=== PATIENT | female | born 1975 | race Caucasian/White ===

== ENCOUNTER → 2017-10-10 | Outpatient (CLI) | payer OTHER ==
[~2017-10-10] VITALS: Ht 167.6 cm; Wt 90.7 kg
[~2017-10-10] MED LIST: ABILIFY15 MG PO; AMBIEN10 MG PO; ENDOCET 10-3251 EACH PO; KADIAN30 MG PO; PROTONIX40 MG PO; WELLBUTRIN XL300 MG PO
== END | disposition home or self-care (01) ==
LOC: AMB 12:38
PROC: 0DJ08ZZ Inspection of Upper Intestinal Tract, Via Natural or Artificial Opening Endoscopic (ICD-10-PCS; principal; 2017-10-10)
DX: K21.0 Gastro-esophageal reflux disease with esophagitis (principal); K44.9 Diaphragmatic hernia without obstruction or gangrene; Z98.84 Bariatric surgery status; F31.9 Bipolar disorder, unspecified; E78.5 Hyperlipidemia, unspecified; M51.26 Other intervertebral disc displacement, lumbar region; Z80.0 Family history of malignant neoplasm of digestive organs; Z87.891 Personal history of nicotine dependence; Z82.49 Family history of ischemic heart disease and other diseases of the circulatory system; Z83.3 Family history of diabetes mellitus; Z88.5 Allergy status to narcotic agent
CPT/HCPCS: J0330; J3010

== ENCOUNTER 2017-10-29 09:03 | Emergency (ER) | payer OTHER ==
[~2017-10-29] VITALS: Ht 167.6 cm; Wt 92.6 kg
[2017-10-29 10:23] LABS: HEMATOCRIT 32.4 % (36.0-46.0); MCH 25.9 PG (29.0-34.0); MCHC 31.2 G/DL (30.0-36.0); MCV 83.1 FL (83-99); MEAN PLAT.VOLUME 9.9 uM^3 (9.5-12.4); PLATELET COUNT 340 K/uL (156-360); RBC DIS.WIDTH-CV 13.3 % (11.8-14.6); RBC DIS.WIDTH-SD 40.2 % (39-53); WHITE BLOOD COUNT 7.6 K/uL (4.1-10.2)
[2017-10-29 10:39] LABS: CHLORIDE 105 mEq/L (99-109); POTASSIUM 4.1 mEq/L (3.7-5.4); SODIUM 139 mEq/L (136-147)
[2017-10-29 10:41] LABS: GLUCOSE 113 mg/dL (70-99)
[2017-10-29 10:42] LABS: ANION GAP 11 MEQ/L (2-14)
[2017-10-29 10:43] LABS: TOTAL BILIRUBIN 0.2 mg/dL (0.0-1.0)
[2017-10-29 10:45] LABS: ALKALINE PHOSPHATASE 57 IU/L (3-129); GFR ESTIMATE (CALCULATED) > 59 mL/min/
[2017-10-29 10:46] LABS: UREA NITROGEN (BUN) 12 mg/dL (9-23)
[2017-10-29 10:48] LABS: LIPASE 11 U/L (1.0-51.0)
[2017-10-29 10:56] LABS: QUANTITATIVE HCG < 4.0 MIU/ML
[2017-10-29 11:09] LABS: ADD MIUA? YES; BILIRUBIN NEGATIVE; BLOOD SMALL; COLOR YELLOW ((YELLOW)); GLUCOSE (STRIP) NEGATIVE; KETONES NEGATIVE; LEUKOCYTES NEGATIVE; NITRITE NEGATIVE; PROTEIN (STRIP) NEGATIVE; SPECIFIC GRAVITY 1.018 (1.000-1.030); UROBILINOGEN 0.2 MG/DL (0.2-1.0)
[2017-10-29 11:15] LABS: BACTERIA NONE SEEN /HPF; EPITHELIAL CELLS 1+ /HPF; MUCUS NONE SEEN /LPF; UCUL ADDED? NO; WHITE BLOOD CELLS 0-5 /HPF (0-5)
[2017-10-29] MEDS ORDERED: KADIAN30 MG PO (13:40)
[2017-10-29] MEDS ORDERED: LIDOCAINE HCL35 GM TP (13:40)
[2017-10-29] MEDS ORDERED: [UNRECOGNIZED DRUG - OTHER] TP (13:43)
[2017-10-29 19:03] VITALS: BP 136/78
== END 2017-10-29 19:12 | disposition short-term general hospital (02) ==
LOC: EME 09:03
DX: K95.09 Other complications of gastric band procedure (principal); J18.9 Pneumonia, unspecified organism; R10.13 Epigastric pain; F32.9 Major depressive disorder, single episode, unspecified; Z87.891 Personal history of nicotine dependence; Z88.5 Allergy status to narcotic agent
CPT/HCPCS: 74177; 80053; 81003; 83690; 84702; 85027; 87040; 99281; 99285; J0295; J2270; J7030; J7050

== ENCOUNTER 2017-11-18 18:45 | Inpatient (IN) | payer OTHER ==
[~2017-11-18] VITALS: Ht 170.2 cm; Wt 89.1 kg
[~2017-11-18 18:45] MED LIST changes: +LIDOCAINE HCL35 GM TP; +[UNRECOGNIZED DRUG - OTHER] TP
[2017-11-18 19:33] LABS: CHLORIDE 87 mEq/L (99-109); POTASSIUM 3.3 mEq/L (3.7-5.4); SODIUM 133 mEq/L (136-147)
[2017-11-18 19:35] LABS: GLUCOSE 104 mg/dL (70-99)
[2017-11-18 19:37] LABS: HEMATOCRIT 28.2 % (36.0-46.0); HEMOGLOBIN 8.8 G/DL (11.9-15.5); MCHC 31.2 G/DL (30.0-36.0); NRBC (%) 0.3 /100 WBC (0-0); RBC DIS.WIDTH-CV 15.1 % (11.8-14.6); RBC DIS.WIDTH-SD 41.6 % (39-53); RED BLOOD COUNT 3.66 M/uL (3.80-5.20); WHITE BLOOD COUNT 12.3 K/uL (4.1-10.2)
[2017-11-18 19:39] LABS: CREATININE 0.7 mg/dL (0.6-1.3); GFR ESTIMATE (CALCULATED) > 59 mL/min/
[2017-11-18 19:40] LABS: UREA NITROGEN (BUN) 10 mg/dL (9-23)
[2017-11-18 19:46] LABS: TROP-I INTERPRETATION NEGATIVE; TROPONIN-I < 0.01 ng/mL (0.0-0.30)
[2017-11-18 20:22] LABS: PLAT.SUFFICIENCY INCREASED
[2017-11-18 20:23] LABS: PLATELET COUNT 1190 K/uL (156-360)
[2017-11-19] VITALS (8 sets, daily range): BP systolic 112–151; BP diastolic 56–84
[2017-11-19 06:06] LABS: BASOPHIL (%) 0.2 % (0-1); EOSINOPHIL (%) 0.3 % (0-5); HEMATOCRIT 24.6 % (36.0-46.0); HEMOGLOBIN 7.8 G/DL (11.9-15.5); IMMATURE GRANULOCYTE (%) 0.4 % (0.0-0.7); LYMPHOCYTE (%) 18.4 % (15-42); LYMPHOCYTE COUNT 1.7 K/uL (1.0-2.8); MCH 24.4 PG (29.0-34.0); MCHC 31.7 G/DL (30.0-36.0); MCV 76.9 FL (83-99); MONOCYTE (%) 7.9 % (3-12); MONOCYTE COUNT 0.7 K/uL (0-0.8); NEUTROPHIL (%) 72.8 % (45-76); NEUTROPHIL COUNT 6.6 K/uL (1.8-6.4); NRBC (%) 0.2 /100 WBC (0-0); PLATELET COUNT 893 K/uL (156-360); RBC DIS.WIDTH-CV 15.4 % (11.8-14.6); RBC DIS.WIDTH-SD 42.1 % (39-53)
[2017-11-19 06:09] LABS: INTER. NORMALIZED RATIO 1.4
[2017-11-19 06:12] LABS: PTT 30.9 SEC (25-37)
[2017-11-19 06:28] LABS: ALBUMIN 2.3 G/DL (3.2-4.8); ALKALINE PHOSPHATASE 148 IU/L (3-129); ALT (GPT) 20 IU/L (3-49); AST (GOT) 27 IU/L (2-34); CHLORIDE 91 MEQ/L (99-109); CREATININE 0.4 MG/DL (0.6-1.3); GFR ESTIMATE (CALCULATED) > 59 mL/min/; GLUCOSE 108 mg/dL (70-99); MAGNESIUM 2.1 mg/dl (1.3-2.7); POTASSIUM 3.5 MEQ/L (3.7-5.4); SODIUM 135 MEQ/L (136-147); TOTAL BILIRUBIN 0.7 MG/DL (0.0-1.0); TOTAL PROTEIN 6.1 G/DL (6.4-8.3); UREA NITROGEN (BUN) 8 mg/dL (9-23)
[2017-11-19 08:55] LABS: FERRITIN 128 NG/ML (10-291)
[2017-11-19 08:58] LABS: TRANSFERRIN (TIBC) 145.9 mg/dL (215-380)
[2017-11-19 08:59] LABS: IRON < 10.0 MCG/DL (35-150)
[2017-11-19 10:10] LABS: FOLIC ACID (FOLATE) 9.3 NG/ML (5.0-22.0)
[2017-11-19 15:01] LABS: TYPE OF FLUID PLEURAL
[2017-11-19 16:36] LABS: APPEARANCE TURBID-YELLOW; BODY FLUID EOSINOPHILS 0 % (0-25); BODY FLUID RBC'S 400000 /MM^3 (0-100); BODY FLUID WBC'S 356000 /MM^3 (0-500); COMMENT MANY INTRA AND EXTRA CELLULAR BACTERIA SEEN; MONONUCLEAR WBC'S 2 %; POLYNUCLEAR WBC'S 98 % (0-25)
[2017-11-19 16:49] LABS: BODY FLUID PROTEIN 3.4 G/DL
[2017-11-19 17:09] LABS: BODY FLUID GLUCOSE < 10 MG/DL
[2017-11-19 17:10] LABS: BODY FLUID LDH > 12000 IU/L
[2017-11-20 03:42] VITALS: BP 107/55
[2017-11-20 07:15] VITALS: BP 111/56
[2017-11-20 07:27] LABS: HEMATOCRIT 25.9 % (36.0-46.0); MCH 23.9 PG (29.0-34.0); MCHC 30.9 G/DL (30.0-36.0); MCV 77.3 FL (83-99); PLATELET COUNT 896 K/uL (156-360); RBC DIS.WIDTH-CV 15.2 % (11.8-14.6); RBC DIS.WIDTH-SD 41.9 % (39-53); RED BLOOD COUNT 3.35 M/uL (3.80-5.20)
[2017-11-20 08:20] LABS: CHLORIDE 93 MEQ/L (99-109); CREATININE 0.4 MG/DL (0.6-1.3); GFR ESTIMATE (CALCULATED) > 59 mL/min/; GLUCOSE 119 mg/dL (70-99); SODIUM 135 MEQ/L (136-147); UREA NITROGEN (BUN) 13 mg/dL (9-23)
[2017-11-20 09:53] LABS: POTASSIUM 3.7 MEQ/L (3.7-5.4)
[2017-11-20 11:19] VITALS: BP 117/56
[2017-11-20 13:17] LABS: STOOL OCCULT BLD 1ST SPECIMEN NEGATIVE
[2017-11-20 13:18] LABS: STOOL OCCULT BLD 1ST SPECIMEN NEGATIVE
[2017-11-20 18:48] VITALS: BP 122/60
[2017-11-20 23:57] VITALS: BP 116/57
[2017-11-21 03:48] VITALS: BP 141/78
[2017-11-21 06:58] LABS: RETICULOCYTE COUNT 0.9 % (0.5-1.8)
[2017-11-21 07:47] VITALS: BP 121/68
[2017-11-21 08:22] LABS: ALBUMIN 2.3 G/DL (3.2-4.8); ALKALINE PHOSPHATASE 118 IU/L (3-129); ALT (GPT) 23 IU/L (3-49); AST (GOT) 29 IU/L (2-34); DIRECT BILIRUBIN 0.2 mg/dL (0.0-0.3); FERRITIN 103 NG/ML (10-291); LACTATE DEHYDROGENASE 113 IU/L (20-246); TOTAL PROTEIN 5.8 G/DL (6.4-8.3)
[2017-11-21 08:27] LABS: TOTAL BILIRUBIN 0.4 MG/DL (0.0-1.0)
[2017-11-21 11:49] VITALS: BP 132/64
[2017-11-21 15:22] LABS: BASOPHIL (%) 0.3 % (0-1); EOSINOPHIL (%) 5.6 % (0-5); EOSINOPHIL COUNT 0.4 K/uL (0-0.3); HEMATOCRIT 24.4 % (36.0-46.0); HEMOGLOBIN 7.3 G/DL (11.9-15.5); IMMATURE GRANULOCYTE (%) 0.3 % (0.0-0.7); LYMPHOCYTE (%) 33.4 % (15-42); LYMPHOCYTE COUNT 2.4 K/uL (1.0-2.8); MCH 23.8 PG (29.0-34.0); MCHC 29.9 G/DL (30.0-36.0); MCV 79.5 FL (83-99); MONOCYTE (%) 6.9 % (3-12); MONOCYTE COUNT 0.5 K/uL (0-0.8); NEUTROPHIL (%) 53.5 % (45-76); NEUTROPHIL COUNT 3.8 K/uL (1.8-6.4); PLATELET COUNT 832 K/uL (156-360); RBC DIS.WIDTH-CV 15.3 % (11.8-14.6); RBC DIS.WIDTH-SD 44.3 % (39-53); RED BLOOD COUNT 3.07 M/uL (3.80-5.20); WHITE BLOOD COUNT 7.1 K/uL (4.1-10.2)
[2017-11-21 15:39] LABS: ALBUMIN 2.4 G/DL (3.2-4.8); ALKALINE PHOSPHATASE 125 IU/L (3-129); ALT (GPT) 35 IU/L (3-49); CHLORIDE 98 MEQ/L (99-109); CREATININE 0.6 MG/DL (0.6-1.3); GFR ESTIMATE (CALCULATED) > 59 mL/min/; GLUCOSE 104 mg/dL (70-99); POTASSIUM 3.1 MEQ/L (3.7-5.4); SODIUM 139 MEQ/L (136-147); TOTAL PROTEIN 6.5 G/DL (6.4-8.3); UREA NITROGEN (BUN) 8 mg/dL (9-23)
[2017-11-21 15:40] LABS: AST (GOT) 53 IU/L (2-34); TOTAL BILIRUBIN 0.3 MG/DL (0.0-1.0)
[2017-11-21 15:43] VITALS: BP 129/75
[2017-11-21 19:31] VITALS: BP 130/70
[2017-11-21 23:29] VITALS: BP 137/67
[2017-11-22 03:26] VITALS: BP 123/68
[2017-11-22 07:30] VITALS: BP 139/76
[2017-11-22 11:58] VITALS: BP 117/63
[2017-11-22 19:34] VITALS: BP 124/68
[2017-11-23] VITALS (7 sets, daily range): BP systolic 116–135; BP diastolic 56–75
[2017-11-23 07:15] LABS: HEMATOCRIT 23.1 % (36.0-46.0); HEMOGLOBIN 7.1 G/DL (11.9-15.5); MCH 24.5 PG (29.0-34.0); MCHC 30.7 G/DL (30.0-36.0); MCV 79.7 FL (83-99); PLATELET COUNT 744 K/uL (156-360); RBC DIS.WIDTH-CV 15.9 % (11.8-14.6); RBC DIS.WIDTH-SD 45.2 % (39-53); WHITE BLOOD COUNT 7.3 K/uL (4.1-10.2)
[2017-11-23 07:45] LABS: ALBUMIN 2.3 G/DL (3.2-4.8); ALKALINE PHOSPHATASE 113 IU/L (3-129); ALT (GPT) 20 IU/L (3-49); CHLORIDE 102 MEQ/L (99-109); CREATININE 0.5 MG/DL (0.6-1.3); GFR ESTIMATE (CALCULATED) > 59 mL/min/; GLUCOSE 98 mg/dL (70-99); SODIUM 140 MEQ/L (136-147); TOTAL PROTEIN 5.6 G/DL (6.4-8.3); UREA NITROGEN (BUN) 7 mg/dL (9-23)
[2017-11-23 07:46] LABS: AST (GOT) 13 IU/L (2-34); POTASSIUM 3.9 MEQ/L (3.7-5.4); TOTAL BILIRUBIN 0.4 MG/DL (0.0-1.0)
[2017-11-24 03:38] VITALS: BP 119/70
[2017-11-24 07:51] VITALS: BP 136/75
[2017-11-24 15:08] VITALS: BP 118/58
[2017-11-24 19:15] VITALS: BP 114/62
[2017-11-24 23:18] VITALS: BP 117/55
[2017-11-25 03:45] VITALS: BP 116/64
[2017-11-25 07:02] LABS: HEMATOCRIT 24.1 % (36.0-46.0); HEMOGLOBIN 7.2 G/DL (11.9-15.5); MCH 24.5 PG (29.0-34.0); MCHC 29.9 G/DL (30.0-36.0); PLATELET COUNT 722 K/uL (156-360); RBC DIS.WIDTH-CV 16.9 % (11.8-14.6); RBC DIS.WIDTH-SD 46.6 % (39-53); RED BLOOD COUNT 2.94 M/uL (3.80-5.20); WHITE BLOOD COUNT 8.9 K/uL (4.1-10.2)
[2017-11-25 07:22] VITALS: BP 133/63
[2017-11-25 07:44] LABS: ALBUMIN 2.5 G/DL (3.2-4.8); ALKALINE PHOSPHATASE 106 IU/L (3-129); ALT (GPT) 12 IU/L (3-49); AST (GOT) 9 IU/L (2-34); CHLORIDE 103 MEQ/L (99-109); CREATININE 0.6 MG/DL (0.6-1.3); GFR ESTIMATE (CALCULATED) > 59 mL/min/; GLUCOSE 92 mg/dL (70-99); SODIUM 140 MEQ/L (136-147); TOTAL PROTEIN 5.8 G/DL (6.4-8.3); UREA NITROGEN (BUN) 9 mg/dL (9-23)
[2017-11-25 07:45] LABS: POTASSIUM 4.7 MEQ/L (3.7-5.4); TOTAL BILIRUBIN 0.3 MG/DL (0.0-1.0)
[2017-11-25 23:41] VITALS: BP 115/64
[2017-11-26 07:51] VITALS: BP 120/63
[2017-11-26 15:27] VITALS: BP 115/57
[2017-11-27] VITALS (12 sets, daily range): BP systolic 110–133; BP diastolic 56–83
[2017-11-27 06:55] LABS: HEMATOCRIT 24.1 % (36.0-46.0); HEMOGLOBIN 7.2 G/DL (11.9-15.5); MCH 24.6 PG (29.0-34.0); MCHC 29.9 G/DL (30.0-36.0); MCV 82.3 FL (83-99); PLATELET COUNT 597 K/uL (156-360); RBC DIS.WIDTH-CV 17.8 % (11.8-14.6); RBC DIS.WIDTH-SD 47.3 % (39-53); RED BLOOD COUNT 2.93 M/uL (3.80-5.20); WHITE BLOOD COUNT 6.2 K/uL (4.1-10.2)
[2017-11-27 07:20] LABS: CHLORIDE 103 MEQ/L (99-109); CREATININE 0.6 MG/DL (0.6-1.3); GFR ESTIMATE (CALCULATED) > 59 mL/min/; GLUCOSE 97 mg/dL (70-99); SODIUM 139 MEQ/L (136-147); UREA NITROGEN (BUN) 7 mg/dL (9-23)
[2017-11-28 00:50] VITALS: BP 124/67
[2017-11-28 01:50] VITALS: BP 128/65
[2017-11-28 03:33] LABS: BASOPHIL (%) 0.6 % (0-1); EOSINOPHIL COUNT 0.3 K/uL (0-0.3); HEMATOCRIT 31.9 % (36.0-46.0); HEMOGLOBIN 9.9 G/DL (11.9-15.5); IMMATURE GRANULOCYTE (%) 0.5 % (0.0-0.7); LYMPHOCYTE (%) 33.9 % (15-42); LYMPHOCYTE COUNT 2.2 K/uL (1.0-2.8); MCH 25.9 PG (29.0-34.0); MCV 83.5 FL (83-99); MONOCYTE (%) 7.5 % (3-12); MONOCYTE COUNT 0.5 K/uL (0-0.8); NEUTROPHIL (%) 52.5 % (45-76); NEUTROPHIL COUNT 3.5 K/uL (1.8-6.4); PLATELET COUNT 557 K/uL (156-360); RBC DIS.WIDTH-CV 18.1 % (11.8-14.6); RBC DIS.WIDTH-SD 49.4 % (39-53); RED BLOOD COUNT 3.82 M/uL (3.80-5.20); WHITE BLOOD COUNT 6.6 K/uL (4.1-10.2)
[2017-11-28 03:43] LABS: ALBUMIN 2.9 g/dL (3.2-4.8)
[2017-11-28 03:44] LABS: CHLORIDE 102 mEq/L (99-109); POTASSIUM 4.6 mEq/L (3.7-5.4); SODIUM 139 mEq/L (136-147)
[2017-11-28 03:46] LABS: GLUCOSE 95 mg/dL (70-99); TOTAL PROTEIN 6.4 g/dL (6.4-8.3)
[2017-11-28 03:48] LABS: TOTAL BILIRUBIN 0.3 mg/dL (0.0-1.0)
[2017-11-28 03:49] LABS: ALKALINE PHOSPHATASE 97 IU/L (3-129)
[2017-11-28 03:50] LABS: CREATININE 0.7 mg/dL (0.6-1.3); GFR ESTIMATE (CALCULATED) > 59 mL/min/
[2017-11-28 03:51] LABS: AST (GOT) 9 IU/L (2-34); UREA NITROGEN (BUN) 7 mg/dL (9-23)
[2017-11-28 03:52] LABS: ALT (GPT) 11 IU/L (3-49)
[2017-11-28 08:21] VITALS: BP 121/50
[2017-11-28 15:56] VITALS: BP 131/79
[2017-11-28 23:06] VITALS: BP 118/58
[2017-11-29 07:16] LABS: BASOPHIL (%) 0.4 % (0-1); EOSINOPHIL (%) 5.1 % (0-5); EOSINOPHIL COUNT 0.4 K/uL (0-0.3); HEMATOCRIT 31.3 % (36.0-46.0); HEMOGLOBIN 9.3 G/DL (11.9-15.5); IMMATURE GRANULOCYTE (%) 0.7 % (0.0-0.7); LYMPHOCYTE COUNT 1.5 K/uL (1.0-2.8); MCHC 29.7 G/DL (30.0-36.0); MCV 84.1 FL (83-99); MONOCYTE (%) 5.2 % (3-12); MONOCYTE COUNT 0.4 K/uL (0-0.8); NEUTROPHIL (%) 68.6 % (45-76); PLATELET COUNT 530 K/uL (156-360); RBC DIS.WIDTH-CV 18.6 % (11.8-14.6); RBC DIS.WIDTH-SD 52.4 % (39-53); RED BLOOD COUNT 3.72 M/uL (3.80-5.20); WHITE BLOOD COUNT 7.2 K/uL (4.1-10.2)
[2017-11-29 07:23] LABS: ALBUMIN 2.9 G/DL (3.2-4.8); ALKALINE PHOSPHATASE 78 IU/L (3-129); ALT (GPT) 7 IU/L (3-49); AST (GOT) 7 IU/L (2-34); CHLORIDE 101 MEQ/L (99-109); CREATININE 0.6 MG/DL (0.6-1.3); GFR ESTIMATE (CALCULATED) > 59 mL/min/; GLUCOSE 102 mg/dL (70-99); POTASSIUM 5.3 MEQ/L (3.7-5.4); SODIUM 138 MEQ/L (136-147); TOTAL BILIRUBIN 0.3 MG/DL (0.0-1.0); TOTAL PROTEIN 6.4 G/DL (6.4-8.3); UREA NITROGEN (BUN) 7 mg/dL (9-23)
[2017-11-29 07:25] VITALS: BP 124/62
[2017-11-29 15:52] VITALS: BP 145/61
[2017-11-30 00:27] VITALS: BP 126/59
[2017-11-30 07:54] LABS: BASOPHIL (%) 0.5 % (0-1); EOSINOPHIL (%) 6.7 % (0-5); EOSINOPHIL COUNT 0.4 K/uL (0-0.3); HEMOGLOBIN 9.4 G/DL (11.9-15.5); IMMATURE GRANULOCYTE (%) 0.5 % (0.0-0.7); LYMPHOCYTE (%) 31.3 % (15-42); LYMPHOCYTE COUNT 1.9 K/uL (1.0-2.8); MCH 25.8 PG (29.0-34.0); MCHC 30.3 G/DL (30.0-36.0); MCV 84.9 FL (83-99); MONOCYTE (%) 6.4 % (3-12); MONOCYTE COUNT 0.4 K/uL (0-0.8); NEUTROPHIL (%) 54.6 % (45-76); NEUTROPHIL COUNT 3.3 K/uL (1.8-6.4); PLATELET COUNT 450 K/uL (156-360); RBC DIS.WIDTH-CV 19.3 % (11.8-14.6); RED BLOOD COUNT 3.65 M/uL (3.80-5.20)
[2017-11-30 08:00] LABS: ALBUMIN 2.9 G/DL (3.2-4.8); CHLORIDE 102 MEQ/L (99-109); CREATININE 0.7 MG/DL (0.6-1.3); GFR ESTIMATE (CALCULATED) > 59 mL/min/; GLUCOSE 89 mg/dL (70-99); PHOSPHORUS 4.4 mg/dL (2.5-4.9); POTASSIUM 4.8 MEQ/L (3.7-5.4); SODIUM 138 MEQ/L (136-147); UREA NITROGEN (BUN) 8 mg/dL (9-23)
[2017-11-30 08:10] VITALS: BP 113/55
[2017-11-30 15:35] VITALS: BP 124/84
[2017-12-01 00:32] VITALS: BP 131/64
[2017-12-01 05:12] VITALS: BP 113/69
[2017-12-01 07:59] LABS: HEMATOCRIT 30.7 % (36.0-46.0); HEMOGLOBIN 9.1 G/DL (11.9-15.5); MCH 25.2 PG (29.0-34.0); MCHC 29.6 G/DL (30.0-36.0); PLATELET COUNT 462 K/uL (156-360); RBC DIS.WIDTH-CV 19.1 % (11.8-14.6); RBC DIS.WIDTH-SD 57.7 % (39-53); RED BLOOD COUNT 3.61 M/uL (3.80-5.20); WHITE BLOOD COUNT 11.7 K/uL (4.1-10.2)
[2017-12-01 08:26] LABS: CHLORIDE 103 MEQ/L (99-109); CREATININE 0.6 MG/DL (0.6-1.3); GFR ESTIMATE (CALCULATED) > 59 mL/min/; GLUCOSE 111 mg/dL (70-99); POTASSIUM 5.1 MEQ/L (3.7-5.4); SODIUM 138 MEQ/L (136-147); UREA NITROGEN (BUN) 6 mg/dL (9-23)
[2017-12-01 08:39] VITALS: BP 113/75
[2017-12-01 11:36] VITALS: BP 120/58
[2017-12-01 16:51] VITALS: BP 125/61
[2017-12-01 23:54] VITALS: BP 122/61
[2017-12-02 06:10] LABS: ALBUMIN 2.7 G/DL (3.2-4.8); ALKALINE PHOSPHATASE 82 IU/L (3-129); ALT (GPT) 12 IU/L (3-49); CHLORIDE 102 MEQ/L (99-109); CREATININE 0.6 MG/DL (0.6-1.3); GFR ESTIMATE (CALCULATED) > 59 mL/min/; GLUCOSE 104 mg/dL (70-99); POTASSIUM 4.5 MEQ/L (3.7-5.4); SODIUM 139 MEQ/L (136-147); TOTAL BILIRUBIN 0.3 MG/DL (0.0-1.0); TOTAL PROTEIN 6.3 G/DL (6.4-8.3); UREA NITROGEN (BUN) 6 mg/dL (9-23)
[2017-12-02 06:11] LABS: AST (GOT) 12 IU/L (2-34)
[2017-12-02 07:13] LABS: BASOPHIL (%) 0.2 % (0-1); EOSINOPHIL (%) 1.6 % (0-5); EOSINOPHIL COUNT 0.1 K/uL (0-0.3); HEMATOCRIT 28.5 % (36.0-46.0); HEMOGLOBIN 8.5 G/DL (11.9-15.5); IMMATURE GRANULOCYTE (%) 0.4 % (0.0-0.7); LYMPHOCYTE (%) 22.9 % (15-42); LYMPHOCYTE COUNT 1.9 K/uL (1.0-2.8); MCH 25.6 PG (29.0-34.0); MCHC 29.8 G/DL (30.0-36.0); MCV 85.8 FL (83-99); MONOCYTE (%) 4.6 % (3-12); MONOCYTE COUNT 0.4 K/uL (0-0.8); NEUTROPHIL (%) 70.3 % (45-76); NEUTROPHIL COUNT 5.8 K/uL (1.8-6.4); PLATELET COUNT 426 K/uL (156-360); RBC DIS.WIDTH-CV 19.3 % (11.8-14.6); RED BLOOD COUNT 3.32 M/uL (3.80-5.20); WHITE BLOOD COUNT 8.3 K/uL (4.1-10.2)
[2017-12-02 08:26] VITALS: BP 127/61
[2017-12-02 12:13] VITALS: BP 119/62
[2017-12-02 16:36] VITALS: BP 122/69
[2017-12-02 23:43] VITALS: BP 122/59
[2017-12-03 05:58] LABS: BASOPHIL (%) 0.3 % (0-1); EOSINOPHIL (%) 1.3 % (0-5); EOSINOPHIL COUNT 0.1 K/uL (0-0.3); HEMATOCRIT 27.8 % (36.0-46.0); HEMOGLOBIN 8.3 G/DL (11.9-15.5); IMMATURE GRANULOCYTE (%) 0.4 % (0.0-0.7); LYMPHOCYTE (%) 28.9 % (15-42); MCH 25.2 PG (29.0-34.0); MCHC 29.9 G/DL (30.0-36.0); MCV 84.5 FL (83-99); MONOCYTE (%) 4.7 % (3-12); MONOCYTE COUNT 0.3 K/uL (0-0.8); NEUTROPHIL (%) 64.4 % (45-76); NEUTROPHIL COUNT 4.5 K/uL (1.8-6.4); PLATELET COUNT 428 K/uL (156-360); RBC DIS.WIDTH-CV 18.6 % (11.8-14.6); RED BLOOD COUNT 3.29 M/uL (3.80-5.20)
[2017-12-03 06:32] LABS: CHLORIDE 103 MEQ/L (99-109); CREATININE 0.5 MG/DL (0.6-1.3); GFR ESTIMATE (CALCULATED) > 59 mL/min/; GLUCOSE 98 mg/dL (70-99); POTASSIUM 4.5 MEQ/L (3.7-5.4); SODIUM 139 MEQ/L (136-147); UREA NITROGEN (BUN) 7 mg/dL (9-23)
[2017-12-03 08:07] VITALS: BP 129/74
[2017-12-03 16:31] VITALS: BP 132/61
[2017-12-04 00:02] VITALS: BP 120/57
[2017-12-04 06:49] LABS: ALKALINE PHOSPHATASE 90 IU/L (3-129); ALT (GPT) 15 IU/L (3-49); AST (GOT) 13 IU/L (2-34); CHLORIDE 102 MEQ/L (99-109); CREATININE 0.6 MG/DL (0.6-1.3); GFR ESTIMATE (CALCULATED) > 59 mL/min/; GLUCOSE 87 mg/dL (70-99); POTASSIUM 4.1 MEQ/L (3.7-5.4); SODIUM 139 MEQ/L (136-147); TOTAL PROTEIN 6.9 G/DL (6.4-8.3); UREA NITROGEN (BUN) 9 mg/dL (9-23)
[2017-12-04 06:58] LABS: TOTAL BILIRUBIN 0.2 MG/DL (0.0-1.0)
[2017-12-04 07:08] LABS: BASOPHIL (%) 0.5 % (0-1); EOSINOPHIL (%) 2.2 % (0-5); EOSINOPHIL COUNT 0.1 K/uL (0-0.3); HEMATOCRIT 29.7 % (36.0-46.0); HEMOGLOBIN 8.6 G/DL (11.9-15.5); IMMATURE GRANULOCYTE (%) 0.3 % (0.0-0.7); LYMPHOCYTE (%) 40.8 % (15-42); LYMPHOCYTE COUNT 2.6 K/uL (1.0-2.8); MCH 24.7 PG (29.0-34.0); MCV 85.3 FL (83-99); MONOCYTE (%) 5.7 % (3-12); MONOCYTE COUNT 0.4 K/uL (0-0.8); NEUTROPHIL (%) 50.5 % (45-76); NEUTROPHIL COUNT 3.3 K/uL (1.8-6.4); PLATELET COUNT 490 K/uL (156-360); RBC DIS.WIDTH-CV 18.9 % (11.8-14.6); RBC DIS.WIDTH-SD 57.8 % (39-53); RED BLOOD COUNT 3.48 M/uL (3.80-5.20); WHITE BLOOD COUNT 6.5 K/uL (4.1-10.2)
[2017-12-04 07:28] VITALS: BP 125/68
[2017-12-04 15:23] VITALS: BP 130/81
[2017-12-04 23:13] VITALS: BP 123/58
[2017-12-05 08:19] VITALS: BP 111/57
[2017-12-05 15:57] VITALS: BP 121/77
[2017-12-05 15:58] VITALS: BP 121/77
[2017-12-06 00:03] VITALS: BP 117/57
[2017-12-06 08:24] VITALS: BP 129/59
[2017-12-06 17:08] VITALS: BP 132/60
[2017-12-07 00:14] VITALS: BP 125/66
[2017-12-07 08:04] LABS: BASOPHIL (%) 0.7 % (0-1); BASOPHIL COUNT 0.1 K/uL (0-0.1); EOSINOPHIL (%) 3.2 % (0-5); EOSINOPHIL COUNT 0.3 K/uL (0-0.3); HEMATOCRIT 33.8 % (36.0-46.0); HEMOGLOBIN 10.2 G/DL (11.9-15.5); LYMPHOCYTE (%) 33.5 % (15-42); LYMPHOCYTE COUNT 2.7 K/uL (1.0-2.8); MCH 25.8 PG (29.0-34.0); MCHC 30.2 G/DL (30.0-36.0); MCV 85.6 FL (83-99); MONOCYTE (%) 6.5 % (3-12); MONOCYTE COUNT 0.5 K/uL (0-0.8); NEUTROPHIL (%) 55.1 % (45-76); NEUTROPHIL COUNT 4.4 K/uL (1.8-6.4); PLATELET COUNT 505 K/uL (156-360); RBC DIS.WIDTH-CV 19.2 % (11.8-14.6); RBC DIS.WIDTH-SD 58.9 % (39-53); RED BLOOD COUNT 3.95 M/uL (3.80-5.20); WHITE BLOOD COUNT 8.1 K/uL (4.1-10.2)
[2017-12-07 08:10] VITALS: BP 109/59
[2017-12-07 08:22] LABS: CHLORIDE 99 MEQ/L (99-109); POTASSIUM 4.9 MEQ/L (3.7-5.4); SODIUM 138 MEQ/L (136-147)
[2017-12-07 08:31] LABS: CREATININE 0.7 MG/DL (0.6-1.3); GFR ESTIMATE (CALCULATED) > 59 mL/min/; GLUCOSE 90 mg/dL (70-99); UREA NITROGEN (BUN) 10 mg/dL (9-23)
[2017-12-07 16:11] VITALS: BP 110/69
[2017-12-07 23:20] VITALS: BP 103/58
[2017-12-08 08:31] VITALS: BP 133/78
[2017-12-08 15:32] VITALS: BP 128/78
[2017-12-08 23:45] VITALS: BP 114/57
[2017-12-09 07:57] LABS: CHLORIDE 101 MEQ/L (99-109); CREATININE 0.7 MG/DL (0.6-1.3); GFR ESTIMATE (CALCULATED) > 59 mL/min/; GLUCOSE 84 mg/dL (70-99); LIPASE 18 U/L (1.0-51.0); POTASSIUM 4.9 MEQ/L (3.7-5.4); SODIUM 139 MEQ/L (136-147); UREA NITROGEN (BUN) 13 mg/dL (9-23)
[2017-12-09 08:56] VITALS: BP 136/2; BP 136/82
[2017-12-09 16:50] VITALS: BP 128/84
[2017-12-09 23:20] VITALS: BP 119/66
[2017-12-10 07:36] VITALS: BP 126/64
[2017-12-10] MEDS ORDERED: KADIAN30 MG PO (15:19)
[2017-12-10] MEDS ORDERED: ENDOCET 10-3251 EACH PO (15:19)
[2017-12-10] MEDS ORDERED: DOCUSATE SODIU100 MG PO (15:19)
[2017-12-10] MEDS ORDERED: Milk Of Magnesia,MOM PO (15:19)
== END 2017-12-10 16:43 | disposition home or self-care (01) | DRG 166 ==
LOC: EME 18:45 → 3EAST 22:30 → 2EAST 22:30 → EDOF 22:30 → ENRESERV 22:31 → 2EAST 11-19 00:45 → ENRESERV 11-30 20:45 → 3EAST 11-30 23:45
PROVIDERS: Hospitalist; Internal Medicine Medical Oncology; Internal Medicine Pulmonary Disease; Pediatrics; Physician Assistant; Physician Assistant Medical; Student in an Organized Health Care Education/Training Program; Thoracic Surgery (Cardiothoracic Vascular Surgery)
PROC: 0W9930Z Drainage of Right Pleural Cavity with Drainage Device, Percutaneous Approach (ICD-10-PCS; 2017-11-19)
PROC: 0W9930Z Drainage of Right Pleural Cavity with Drainage Device, Percutaneous Approach (ICD-10-PCS; 2017-11-25)
PROC: 30233N1 Transfusion of Nonautologous Red Blood Cells into Peripheral Vein, Percutaneous Approach (ICD-10-PCS; 2017-11-27)
PROC: 0BCN4ZZ Extirpation of Matter from Right Pleura, Percutaneous Endoscopic Approach (ICD-10-PCS; principal; 2017-11-30)
PROC: 0BNN4ZZ Release Right Pleura, Percutaneous Endoscopic Approach (ICD-10-PCS; 2017-11-30)
PROC: 0B9N40Z Drainage of Right Pleura with Drainage Device, Percutaneous Endoscopic Approach (ICD-10-PCS; 2017-11-30)
DX: J18.1 Lobar pneumonia, unspecified organism (principal); J86.9 Pyothorax without fistula; J91.8 Pleural effusion in other conditions classified elsewhere; J98.11 Atelectasis; D47.3 Essential (hemorrhagic) thrombocythemia; E66.9 Obesity, unspecified; R01.0 Benign and innocent cardiac murmurs; M21.371 Foot drop, right foot; K31.84 Gastroparesis; M21.372 Foot drop, left foot; S84.10XA Injury of peroneal nerve at lower leg level, unspecified leg, initial encounter; E78.5 Hyperlipidemia, unspecified; G57.31 Lesion of lateral popliteal nerve, right lower limb; I10 Essential (primary) hypertension; K21.9 Gastro-esophageal reflux disease without esophagitis; D50.8 Other iron deficiency anemias; K04.1 Necrosis of pulp; J98.4 Other disorders of lung; J98.01 Acute bronchospasm; E11.43 Type 2 diabetes mellitus with diabetic autonomic (poly)neuropathy; E87.6 Hypokalemia; Z87.01 Personal history of pneumonia (recurrent); Z87.891 Personal history of nicotine dependence; Z88.5 Allergy status to narcotic agent; Z68.30 Body mass index [BMI] 30.0-30.9, adult; Z98.84 Bariatric surgery status; Z83.3 Family history of diabetes mellitus; Z80.0 Family history of malignant neoplasm of digestive organs; Z82.3 Family history of stroke
CPT/HCPCS: 32555; 49405; 70551; 71010; 71020; 71045; 71046; 71250; 71275; 72132; 74177; 80048; 80053; 80069; 80076; 82272; 82607; 82728; 82746; 82945; 82948; 83540; 83605; 83615; 83615 91; 83690; 83735; 84157; 84466; 84484; 84999; 85014; 85018; 85025; 85027; 85046; 85610; 85730; 86850; 86900; 86901; 86920; 87040; 87070; 87075; 87076; 87185; 87205; 88108; 88305; 88312; 89051; 93005; 93306; 94010; 94640; 94640 76; 94668; 94760; 94799; 97530 GP; 99202; 99281; 99285; C1769; J0131; J0295; J0456; J0696; J1100; J1170; J1644; J1885; J2250; J2405; J2543; J2710; J3010; J7030; J7040; J7050; J7120; J7512; P9016; S0074

== ENCOUNTER 2018-03-07 10:03 | Day surgery (SDC) | payer OTHER ==
[~2018-03-07] VITALS: Ht 165.1 cm; Wt 96.6 kg
[~2018-03-07 10:03] MED LIST changes: -ABILIFY15 MG PO; +ABILIFY30 MG PO; +DOCUSATE SODIU100 MG PO; +MS CONTIN,ORAMO30 MG PO; +Milk Of Magnesia,MOM PO; +NEURONTIN100 MG PO; +PERCOCET 10/1 TABLET PO; +WOMEN'S DAILY1 EAC2 PO
[2018-03-07 10:48] VITALS: BP 1442/86
[2018-03-07 13:55] VITALS: BP 139/76
== END 2018-03-07 14:25 | disposition home or self-care (01) ==
LOC: SDC 10:03
PROC: 01NH0ZZ Release Peroneal Nerve, Open Approach (ICD-10-PCS; principal; 2018-03-07)
DX: M21.371 Foot drop, right foot (principal); G57.31 Lesion of lateral popliteal nerve, right lower limb; M47.816 Spondylosis without myelopathy or radiculopathy, lumbar region; E66.9 Obesity, unspecified; Z68.35 Body mass index [BMI] 35.0-35.9, adult; Z98.84 Bariatric surgery status; Z87.891 Personal history of nicotine dependence; Z79.891 Long term (current) use of opiate analgesic
CPT/HCPCS: J0690; J2250; J2405